=== PATIENT | female | born 1970 | race Two or more races ===

== ENCOUNTER 2023-04-26 19:40 | Emergency (ER) | payer BC ==
[~2023-04-26] VITALS: Ht 162.6 cm; Wt 73.8 kg
[2023-04-26 20:36] LABS: BASOPHILS % (AUTO) 0.7 % (0-1); EOSINOPHILS # (AUTO) 0.1 X10'3 (0-0.9); EOSINOPHILS % (AUTO) 1.5 % (0-6); HEMATOCRIT 41.9 % (35.0-45.0); HEMOGLOBIN 14.1 g/dl (12.0-16.0); LYMPHOCYTES # (AUTO) 1.4 X10'3 (1.1-4.8); LYMPHOCYTES % (AUTO) 34.4 % (21-51); MEAN CORPUSCULAR HEMOGLOBIN 29.5 PG (27.0-31.0); MEAN CORPUSCULAR HGB CONC 33.6 g/dL (33.0-36.5); MEAN CORPUSCULAR VOLUME 87.8 FL (78-98); MEAN PLATELET VOLUME 7.7 FL (7.4-10.4); MONOCYTES # (AUTO) 0.4 X10'3 (0-0.9); MONOCYTES % (AUTO) 10.5 % (2-12); NEUTROPHILS # (AUTO) 2.1 X10'3 (1.8-7.7); NEUTROPHILS % (AUTO) 52.9 % (42-75); PLATELET COUNT 213 X10'3 (140-440); RED BLOOD COUNT 4.77 X10'6 (4.20-5.60); RED CELL DISTRIBUTION WIDTH 13.5 % (11.5-14.5)
[2023-04-26 20:47] LABS: ALANINE AMINOTRANSFERASE 58 U/L (12-78); ALBUMIN 3.9 G/DL (3.4-5.0); ALKALINE PHOSPHATASE 112 IU/L (46-116); ANION GAP 11 (8-16); ASPARTATE AMINO TRANSFERASE 28 U/L (10-37); BILIRUBIN,TOTAL 0.3 MG/DL (0.1-1.0); BLOOD UREA NITROGEN 13 MG/DL (7-18); BUN/CREATININE RATIO 12.9 (10.0-20.0); CALCIUM 9.6 MG/DL (8.5-10.1); CHLORIDE 104 MMOL/L (99-107); CREATININE 1.01 MG/DL (0.40-0.90); GLUCOSE 115 MG/DL (70-104); POTASSIUM 3.8 MMOL/L (3.5-5.1); SODIUM 137 MMOL/L (135-145); TOTAL CARBON DIOXIDE 21.9 MMOL/L (24-32); eGFR 57 ML/MIN
[2023-04-26 20:48] LABS: LIPASE 172 U/L (73-393)
[2023-04-26 20:58] LABS: CLARITY,URINE CLEAR (Clear); COLOR,URINE YELLOW (Yellow); GLUCOSE, URINE NEGATIVE (Neg); KETONES,URINE NEGATIVE (Neg); LEUKOCYTE ESTERASE ,URINE NEGATIVE (Neg); NITRITES, URINE NEGATIVE (Neg); OCCULT BLOOD,URINE NEGATIVE (Neg); PROTEIN,URINE NEGATIVE (Neg); UROBILINOGEN,URINE 0.2 E.U/dL (0.2-1.0)
[2023-04-26 21:12] LABS: UA COLLECTION TYPE CLN CATCH MIDSTREAM
[2023-04-26] MEDS ORDERED: loperamide 2mg capsule PO ONE (22:30)
[2023-04-26] MEDS ORDERED: ciprofloxacin 250mg tablet PO ONE (22:30)
[2023-04-26] MEDS ORDERED: ondansetron 4mg rapidly disintigrating tab PO ONE (22:30)
[2023-04-26] MEDS ORDERED: famotidine 20mg tablet PO ONE (22:30)
[2023-04-26] MEDS ORDERED: FAMO-128 PO (22:38)
[2023-04-26] MEDS ORDERED: LOPE2CAP PO (22:38)
[2023-04-26] MEDS ORDERED: CIPR-202 PO (22:38)
[2023-04-26] MEDS ORDERED: ONDA4TAB12 PO (22:38)
[2023-04-26] MEDS ORDERED: normal saline 1000ml 1,000 ML IV ONE (22:50)
[2023-04-26 23:35] VITALS: BP 116/75
== END 2023-04-26 23:37 | disposition home or self-care (01) ==
LOC: ER 19:41
DX: R19.7 Diarrhea, unspecified (principal); R11.0 Nausea; R53.83 Other fatigue; R10.84 Generalized abdominal pain; R50.9 Fever, unspecified; Z79.2 Long term (current) use of antibiotics; Z79.899 Other long term (current) drug therapy
CPT/HCPCS: 36415; 80053; 81003; 83690; 85025; 96360; 99283; J7030